=== PATIENT | female | born 1945 | race Caucasian/White ===

== ENCOUNTER 2017-02-08 12:01 | Inpatient (IN) | payer MEDICARE, OTHER, MEDICAID ==
[2017-02-08] MEDS: SOD CHLORIDE 0.9% 1,000 ML IV (12:56)
[2017-02-08 13:14] LABS: ADD MAN DIFF? NO; BASOPHILS % 0.4 % (0.0-2.0); EOSINOPHILS # 0.2 10^3/ul (0.0-0.5); EOSINOPHILS % 1.5 % (0.0-7.0); HEMATOCRIT 43.6 % (37.0-47.0); HEMOGLOBIN 14.4 g/dl (12.0-16.0); LYMPHOCYTES # 2.2 10^3/ul (0.8-2.9); LYMPHOCYTES % 19.5 % (15.0-51.0); MEAN CORPUSCULAR HEMOGLOBIN 30.1 pg (29.0-33.0); MEAN CORPUSCULAR VOLUME 91.2 fl (82.0-101.0); MEAN PLATELET VOLUME 9.9 fl (7.4-10.4); MONOCYTE # 0.5 10^3/ul (0.3-0.9); MONOCYTES % 4.5 % (0.0-11.0); NEUTROPHIL # 8.3 10^3/ul (1.6-7.5); NEUTROPHILS % 73.7 % (39.0-77.0); PLATELET COUNT 270 10^3/UL (140-415); RED BLOOD COUNT 4.78 10^6/ul (4.20-5.40)
[2017-02-08 13:14] LABS: WHITE BLOOD COUNT 11.3 10^3/ul (4.8-10.8)
[2017-02-08 13:27] LABS: INR 0.95; PROTIME 12.8 Sec (11.9-14.9)
[2017-02-08 13:29] LABS: PARTIAL THROMBOPLASTIN TIME 26.4 Sec (25.0-35.0)
[2017-02-08 13:30] LABS: ALANINE AMINOTRANSFERASE 31 IU/L (13-69); ALBUMIN/GLOBULIN RATIO 1.17; ALKALINE PHOSPHATASE 105 IU/L (42-121); ANION GAP 16 (8-16); ASPARTATE AMINO TRANSFERASE 24 IU/L (15-46); BILIRUBIN,INDIRECT 0.3 mg/dl (0-1.1); BILIRUBIN,TOTAL 0.3 mg/dl (0.2-1.3); BLOOD UREA NITROGEN 22 mg/dl (7-20); CALCIUM 9.1 mg/dl (8.4-10.2); CARBON DIOXIDE 26 mmol/L (21-31); CHLORIDE 101 mmol/L (97-110); CREATININE 1.11 mg/dl (0.44-1.00); GLUCOSE 102 mg/dl (70-220); POTASSIUM 4.7 mmol/L (3.5-5.1); SODIUM 138 mmol/L (135-144); TOTAL PROTEIN 7.4 g/dl (6.1-8.1)
[2017-02-08 13:31] LABS: ETHANOL < 10.0 mg/dl
[2017-02-08 13:45] LABS: TROPONIN-I < 0.012 ng/ml (0.00-0.12)
[2017-02-08 15:26] LABS: ADD UMIC YES; UR ASCORBIC ACID NEGATIVE (NEGATIVE); UR BILIRUBIN (Dip) NEGATIVE (NEGATIVE); UR BLOOD (Dip) 1+ mg/dL (NEGATIVE); UR CLARITY CLEAR (CLEAR); UR COLOR STRAW (YELLOW); UR GLUCOSE (Dip) NEGATIVE (NEGATIVE); UR KETONES (Dip) NEGATIVE (NEGATIVE); UR LEUKOCYTE ESTERASE (Dip) NEGATIVE Leu/ul (NEGATIVE); UR NITRITE (Dip) NEGATIVE (NEGATIVE); UR RBC 1 /HPF (0-5); UR SPECIFIC GRAVITY (Dip) 1.004 (1.003-1.030); UR TOTAL PROTEIN (Dip) NEGATIVE (NEGATIVE); UR UROBILINOGEN (Dip) NEGATIVE (NEGATIVE); UR WBC 0 /HPF (0-5)
[2017-02-08] MEDS ORDERED: NACL 0.9% 3 ML SYG IV (16:00)
[2017-02-08] MEDS ORDERED: LORAZEPAM 0.5 MG TAB PO (16:00)
[2017-02-08] MEDS ORDERED: ACETAMINOPHEN 325 MG TAB PO (16:00)
[2017-02-08] MEDS ORDERED: ONDANSETRON 4 MG INJ IV ×2 (16:00)
[2017-02-08] MEDS: DILTIAZEM 25 MG INJ IV (16:11)
[2017-02-08] MEDS: BUSPIRONE 5 MG TAB PO ×2 (17:00→22:14)
[2017-02-08 17:11] LABS: FREE T4 (FREE THYROXINE) 1.29 ng/dl (0.78-2.44)
[2017-02-08 18:27] LABS: C-REACTIVE PROTEIN 0.5 mg/dl (0.0-0.9)
[2017-02-08] MEDS: HYDROCODONE/APAP (5/325) TAB PO (18:41)
[2017-02-08 19:09] LABS: ERYTHROCYTE SEDIMENTATION RATE 20 mm/Hr (0-30)
[2017-02-08 21:08] LABS: HEMOGLOBIN A1C 5.4 % (0-5.9)
[2017-02-09 06:18] LABS: ADD MAN DIFF? NO
[2017-02-09 06:37] LABS: WHITE BLOOD COUNT 8.6 10^3/ul (4.8-10.8)
[2017-02-09 06:37] LABS: BASOPHILS % 0.5 % (0.0-2.0); EOSINOPHILS # 0.1 10^3/ul (0.0-0.5); EOSINOPHILS % 1.2 % (0.0-7.0); HEMATOCRIT 39.7 % (37.0-47.0); LYMPHOCYTES # 2.9 10^3/ul (0.8-2.9); LYMPHOCYTES % 33.3 % (15.0-51.0); MEAN CORPUSCULAR HEMOGLOBIN 30.2 pg (29.0-33.0); MEAN CORPUSCULAR HGB CONC 32.7 g/dl (32.0-37.0); MEAN CORPUSCULAR VOLUME 92.3 fl (82.0-101.0); MEAN PLATELET VOLUME 10.1 fl (7.4-10.4); MONOCYTE # 0.5 10^3/ul (0.3-0.9); MONOCYTES % 5.9 % (0.0-11.0); NEUTROPHILS % 58.6 % (39.0-77.0); PLATELET COUNT 253 10^3/UL (140-415); RED CELL DISTRIBUTION WIDTH 13.1 % (11.5-14.5)
[2017-02-09 07:02] LABS: CHOL/HDL RATIO 3.5 RATIO; CHOLESTEROL 135 mg/dl (100-200); HDL CHOLESTEROL 38 mg/dl (33-92); LDL CHOLESTEROL,CALCULATED 72 mg/dl; MAGNESIUM 1.7 mg/dl (1.7-2.5); TRIGLYCERIDES 125 mg/dl (0-149)
[2017-02-09 07:18] LABS: TROPONIN-I < 0.012 ng/ml (0.00-0.12)
[2017-02-09 07:31] LABS: ANION GAP 13 (8-16)
[2017-02-09 07:33] LABS: ALANINE AMINOTRANSFERASE 26 IU/L (13-69); ALBUMIN 3.4 g/dl (3.3-4.9); ALBUMIN/GLOBULIN RATIO 1.21; ALKALINE PHOSPHATASE 75 IU/L (42-121); ASPARTATE AMINO TRANSFERASE 23 IU/L (15-46); BILIRUBIN,INDIRECT 0.3 mg/dl (0-1.1); BILIRUBIN,TOTAL 0.3 mg/dl (0.2-1.3); BLOOD UREA NITROGEN 16 mg/dl (7-20); CALCIUM 8.8 mg/dl (8.4-10.2); CARBON DIOXIDE 28 mmol/L (21-31); CHLORIDE 104 mmol/L (97-110); CREATININE 0.91 mg/dl (0.44-1.00); GLUCOSE 94 mg/dl (70-220); SODIUM 141 mmol/L (135-144); TOTAL PROTEIN 6.2 g/dl (6.1-8.1)
[2017-02-09] MEDS: BUPROPION (XL) 150 MG TAB PO (08:49)
[2017-02-09] MEDS: LAMOTRIGINE 100 MG TAB PO (08:50)
[2017-02-09] MEDS: OLANZAPINE 5 MG TAB PO (08:50)
[2017-02-09] MEDS: FLUOXETINE 20 MG CAP PO (08:50)
[2017-02-09] MEDS: HYDROCODONE/APAP (5/325) TAB PO (08:50)
[2017-02-09] MEDS: BUSPIRONE 5 MG TAB PO ×4 (08:50→21:06)
[2017-02-09] MEDS: BACLOFEN 10 MG TAB PO (08:50)
[2017-02-09] MEDS: ENOXAPARIN 40 MG/0.4 ML SYG SC (12:51)
[2017-02-09] MEDS: VALSARTAN 80 MG TAB PO (21:06)
[2017-02-10] MEDS: HYDROCODONE/APAP (5/325) TAB PO (00:46)
[2017-02-10 06:51] LABS: ADD MAN DIFF? NO
[2017-02-10 07:58] LABS: ANION GAP 17 (8-16); BLOOD UREA NITROGEN 16 mg/dl (7-20); CALCIUM 8.8 mg/dl (8.4-10.2); CARBON DIOXIDE 22 mmol/L (21-31); CHLORIDE 105 mmol/L (97-110); CREATININE 0.84 mg/dl (0.44-1.00); GLUCOSE 97 mg/dl (70-220); POTASSIUM 4.4 mmol/L (3.5-5.1); SODIUM 140 mmol/L (135-144)
[2017-02-10 08:53] LABS: PHOSPHORUS 3.4 mg/dl (2.5-4.9)
[2017-02-10 09:11] LABS: WHITE BLOOD COUNT 8.7 10^3/ul (4.8-10.8)
[2017-02-10 09:11] LABS: BASOPHILS % 0.3 % (0.0-2.0); EOSINOPHILS # 0.1 10^3/ul (0.0-0.5); EOSINOPHILS % 1.3 % (0.0-7.0); HEMATOCRIT 42.3 % (37.0-47.0); HEMOGLOBIN 13.9 g/dl (12.0-16.0); LYMPHOCYTES # 2.2 10^3/ul (0.8-2.9); LYMPHOCYTES % 25.4 % (15.0-51.0); MEAN CORPUSCULAR HEMOGLOBIN 30.2 pg (29.0-33.0); MEAN CORPUSCULAR HGB CONC 32.9 g/dl (32.0-37.0); MEAN PLATELET VOLUME 9.6 fl (7.4-10.4); MONOCYTE # 0.5 10^3/ul (0.3-0.9); MONOCYTES % 5.8 % (0.0-11.0); NEUTROPHIL # 5.8 10^3/ul (1.6-7.5); NEUTROPHILS % 66.9 % (39.0-77.0); PLATELET COUNT 234 10^3/UL (140-415)
[2017-02-10] MEDS: BUSPIRONE 5 MG TAB PO ×4 (09:29→20:47)
[2017-02-10] MEDS: BUPROPION (XL) 150 MG TAB PO (09:29)
[2017-02-10] MEDS: BACLOFEN 10 MG TAB PO (09:30)
[2017-02-10] MEDS: OLANZAPINE 5 MG TAB PO (09:31)
[2017-02-10] MEDS: VALSARTAN 80 MG TAB PO ×2 (09:31→20:59)
[2017-02-10] MEDS: LAMOTRIGINE 100 MG TAB PO (09:31)
[2017-02-10] MEDS: FLUOXETINE 20 MG CAP PO (09:32)
[2017-02-10] MEDS: ENOXAPARIN 40 MG/0.4 ML SYG SC (09:41)
[2017-02-10 09:48] LABS: MAGNESIUM 1.7 mg/dl (1.7-2.5)
[2017-02-11] MEDS: FLUOXETINE 20 MG CAP PO (08:35)
[2017-02-11] MEDS: LAMOTRIGINE 100 MG TAB PO (08:35)
[2017-02-11] MEDS: OLANZAPINE 5 MG TAB PO (08:35)
[2017-02-11] MEDS: BACLOFEN 10 MG TAB PO (08:35)
[2017-02-11] MEDS: BUSPIRONE 5 MG TAB PO ×4 (08:36→21:16)
[2017-02-11] MEDS: VALSARTAN 80 MG TAB PO ×2 (08:37→21:15)
[2017-02-11] MEDS: BUPROPION (XL) 150 MG TAB PO (08:37)
[2017-02-11] MEDS: ENOXAPARIN 40 MG/0.4 ML SYG SC (08:44)
[2017-02-11] MEDS: ACETAMINOPHEN 325 MG TAB PO (08:46)
[2017-02-11] MEDS: HYDROCODONE/APAP (5/325) TAB PO ×2 (14:12→21:25)
[2017-02-11] MEDS: NYSTATIN 30 GM POWDER BTL TOP (18:30)
[2017-02-11] MEDS: ZOLPIDEM 5 MG TAB PO (21:25)
[2017-02-12] MEDS: BUSPIRONE 5 MG TAB PO ×4 (08:12→21:14)
[2017-02-12] MEDS: VALSARTAN 80 MG TAB PO ×2 (08:12→21:13)
[2017-02-12] MEDS: LAMOTRIGINE 100 MG TAB PO (08:12)
[2017-02-12] MEDS: BACLOFEN 10 MG TAB PO (08:13)
[2017-02-12] MEDS: OLANZAPINE 5 MG TAB PO (08:13)
[2017-02-12] MEDS: FLUOXETINE 20 MG CAP PO (08:13)
[2017-02-12] MEDS: BUPROPION (XL) 150 MG TAB PO (08:14)
[2017-02-12] MEDS: ENOXAPARIN 40 MG/0.4 ML SYG SC (08:22)
[2017-02-12] MEDS: NYSTATIN 30 GM POWDER BTL TOP ×2 (08:23→21:15)
[2017-02-12] MEDS: HYDROCODONE/APAP (5/325) TAB PO (13:25)
[2017-02-13] MEDS: NYSTATIN 30 GM POWDER BTL TOP ×2 (08:41→20:59)
[2017-02-13] MEDS: BUPROPION (XL) 150 MG TAB PO (08:43)
[2017-02-13] MEDS: FLUOXETINE 20 MG CAP PO (08:43)
[2017-02-13] MEDS: BUSPIRONE 5 MG TAB PO ×4 (08:44→20:59)
[2017-02-13] MEDS: OLANZAPINE 5 MG TAB PO (08:45)
[2017-02-13] MEDS: LAMOTRIGINE 100 MG TAB PO (08:45)
[2017-02-13] MEDS: BACLOFEN 10 MG TAB PO (08:45)
[2017-02-13] MEDS: VALSARTAN 80 MG TAB PO ×2 (08:46→20:57)
[2017-02-13] MEDS: ENOXAPARIN 40 MG/0.4 ML SYG SC (08:53)
[2017-02-13] MEDS ORDERED: METOPROLOL 5 MG INJ IV (20:00)
[2017-02-13] MEDS: DIGOXIN 500 MCG INJ IV (20:51)
[2017-02-13] MEDS: DILTIAZEM (CD) 120 MG CAP PO (20:56)
[2017-02-13] MEDS: APIXABAN 5 MG TABLET PO (20:57)
[2017-02-14] MEDS: ACETAMINOPHEN 325 MG TAB PO (03:04)
[2017-02-14 07:30] LABS: ADD MAN DIFF? NO
[2017-02-14 07:36] LABS: WHITE BLOOD COUNT 9.1 10^3/ul (4.8-10.8)
[2017-02-14 07:36] LABS: BASOPHIL # 0.1 10^3/ul (0.0-0.1); BASOPHILS % 0.5 % (0.0-2.0); EOSINOPHILS # 0.1 10^3/ul (0.0-0.5); EOSINOPHILS % 1.4 % (0.0-7.0); HEMATOCRIT 42.1 % (37.0-47.0); HEMOGLOBIN 13.9 g/dl (12.0-16.0); LYMPHOCYTES # 2.3 10^3/ul (0.8-2.9); LYMPHOCYTES % 25.1 % (15.0-51.0); MEAN CORPUSCULAR HEMOGLOBIN 30.3 pg (29.0-33.0); MEAN CORPUSCULAR VOLUME 91.7 fl (82.0-101.0); MEAN PLATELET VOLUME 9.9 fl (7.4-10.4); MONOCYTE # 0.5 10^3/ul (0.3-0.9); NEUTROPHIL # 6.2 10^3/ul (1.6-7.5); NEUTROPHILS % 67.7 % (39.0-77.0); PLATELET COUNT 242 10^3/UL (140-415); RED BLOOD COUNT 4.59 10^6/ul (4.20-5.40); RED CELL DISTRIBUTION WIDTH 12.9 % (11.5-14.5)
[2017-02-14 08:19] LABS: ANION GAP 15 (8-16); BLOOD UREA NITROGEN 15 mg/dl (7-20); CALCIUM 9.1 mg/dl (8.4-10.2); CARBON DIOXIDE 24 mmol/L (21-31); CHLORIDE 106 mmol/L (97-110); CREATININE 0.87 mg/dl (0.44-1.00); GLUCOSE 100 mg/dl (70-220); MAGNESIUM 1.7 mg/dl (1.7-2.5); PHOSPHORUS 3.6 mg/dl (2.5-4.9); POTASSIUM 4.4 mmol/L (3.5-5.1); SODIUM 141 mmol/L (135-144)
[2017-02-14 08:28] LABS: TROPONIN-I < 0.012 ng/ml (0.00-0.12)
[2017-02-14] MEDS: BUPROPION (XL) 150 MG TAB PO (08:40)
[2017-02-14] MEDS: NYSTATIN 30 GM POWDER BTL TOP (08:40)
[2017-02-14] MEDS: LAMOTRIGINE 100 MG TAB PO (08:40)
[2017-02-14] MEDS: APIXABAN 5 MG TABLET PO (08:40)
[2017-02-14] MEDS: BACLOFEN 10 MG TAB PO (08:40)
[2017-02-14] MEDS: DILTIAZEM (CD) 120 MG CAP PO (08:41)
[2017-02-14] MEDS: OLANZAPINE 5 MG TAB PO (08:41)
[2017-02-14] MEDS: VALSARTAN 80 MG TAB PO (08:41)
[2017-02-14] MEDS: BUSPIRONE 5 MG TAB PO ×3 (08:41→16:51)
[2017-02-14] MEDS: FLUOXETINE 20 MG CAP PO (08:41)
[2017-02-14] MEDS: HYDROCODONE/APAP (5/325) TAB PO (13:48)
== END 2017-02-14 18:59 | DRG 309 ==
LOC: TEL 02-09 10:10 → E/R 12:01 → MS2 15:38
PROVIDERS: Internal Medicine
DX: I48.91 Unspecified atrial fibrillation (principal); N17.9 Acute kidney failure, unspecified; Z68.42 Body mass index [BMI] 45.0-49.9, adult; R62.7 Adult failure to thrive; I10 Essential (primary) hypertension; E66.01 Morbid (severe) obesity due to excess calories; F31.9 Bipolar disorder, unspecified; R60.9 Edema, unspecified
CPT/HCPCS: 36415; 70450; 71010; 80048; 80053; 80061; 80306; 81001; 83036; 83735; 84100; 84439; 84443; 84484; 85025; 85610; 85651; 85730; 86140; 87400; 92610; 93005; 93306; 93970; 96374; 99217; 99285-25

== ENCOUNTER 2017-04-16 10:02 | Emergency (ER) | payer MEDICARE, OTHER ==
[2017-04-16] MEDS: KETOROLAC 15 MG INJ IV (22:13)
[2017-04-16] MEDS: ONDANSETRON 4 MG INJ IV (22:15)
[2017-04-16] MEDS: SOD CHLORIDE 0.9% 1,000 ML IV (22:16)
[2017-04-16 22:38] LABS: ADD MAN DIFF? NO
[2017-04-16 22:43] LABS: WHITE BLOOD COUNT 17.7 10^3/ul (4.8-10.8)
[2017-04-16 22:43] LABS: BASOPHIL # 0.1 10^3/ul (0.0-0.1); BASOPHILS % 0.3 % (0.0-2.0); EOSINOPHILS # 0.1 10^3/ul (0.0-0.5); EOSINOPHILS % 0.5 % (0.0-7.0); HEMATOCRIT 42.6 % (37.0-47.0); HEMOGLOBIN 13.9 g/dl (12.0-16.0); LYMPHOCYTES # 3.4 10^3/ul (0.8-2.9); LYMPHOCYTES % 19.3 % (15.0-51.0); MEAN CORPUSCULAR HEMOGLOBIN 30.3 pg (29.0-33.0); MEAN CORPUSCULAR HGB CONC 32.6 g/dl (32.0-37.0); MEAN CORPUSCULAR VOLUME 92.8 fl (82.0-101.0); MEAN PLATELET VOLUME 10.3 fl (7.4-10.4); MONOCYTE # 1.1 10^3/ul (0.3-0.9); MONOCYTES % 6.1 % (0.0-11.0); NEUTROPHILS % 73.3 % (39.0-77.0); PLATELET COUNT 315 10^3/UL (140-415); RED BLOOD COUNT 4.59 10^6/ul (4.20-5.40)
[2017-04-16 23:02] LABS: ALANINE AMINOTRANSFERASE 35 IU/L (13-69); ALBUMIN 3.8 g/dl (3.3-4.9); ALBUMIN/GLOBULIN RATIO 1.26; ALKALINE PHOSPHATASE 80 IU/L (42-121); ANION GAP 19 (8-16); ASPARTATE AMINO TRANSFERASE 31 IU/L (15-46); BILIRUBIN,INDIRECT 0.5 mg/dl (0-1.1); BILIRUBIN,TOTAL 0.5 mg/dl (0.2-1.3); BLOOD UREA NITROGEN 21 mg/dl (7-20); CALCIUM 9.5 mg/dl (8.4-10.2); CARBON DIOXIDE 19 mmol/L (21-31); CHLORIDE 107 mmol/L (97-110); GLUCOSE 92 mg/dl (70-220); LIPASE 92 U/L (23-300); SODIUM 141 mmol/L (135-144); TOTAL PROTEIN 6.8 g/dl (6.1-8.1)
[2017-04-16 23:05] LABS: ADD UMIC YES; UR ASCORBIC ACID 40 mg/dL (NEGATIVE); UR BACTERIA FEW /HPF (NONE SEEN); UR BILIRUBIN (Dip) NEGATIVE (NEGATIVE); UR BLOOD (Dip) 1+ mg/dL (NEGATIVE); UR CLARITY TURBID (CLEAR); UR COLOR AMBER (YELLOW); UR GLUCOSE (Dip) NEGATIVE (NEGATIVE); UR KETONES (Dip) NEGATIVE (NEGATIVE); UR LEUKOCYTE ESTERASE (Dip) 3+ Leu/ul (NEGATIVE); UR MUCUS FEW /HPF (NONE SEEN); UR NITRITE (Dip) NEGATIVE (NEGATIVE); UR RBC 38 /HPF (0-5); UR SPECIFIC GRAVITY (Dip) 1.018 (1.003-1.030); UR SQUAMOUS EPITHELIAL CELL FEW /HPF (FEW); UR TOTAL PROTEIN (Dip) 2+ mg/dl (NEGATIVE); UR TRANSITIONAL EPI CELL FEW /HPF (NONE SEEN); UR UROBILINOGEN (Dip) NEGATIVE (NEGATIVE); UR WBC > 182 /HPF (0-5)
[2017-04-16] MEDS: HYDROCODONE/APAP (5/325) TAB PO (23:47)
[2017-04-16] MEDS: CEFEPIME 1GM/50 ML (PMX) 50 ML IVPB (23:47)
[2017-04-17] MEDS: HYDROmorphONE 0.5 MG/0.5 ML SYG IM ×2 (00:59)
== END 2017-04-17 01:20 | disposition home or self-care (01) ==
LOC: E/R 04-17 01:20
DX: N12 Tubulo-interstitial nephritis, not specified as acute or chronic (principal); N28.9 Disorder of kidney and ureter, unspecified; J45.909 Unspecified asthma, uncomplicated; I10 Essential (primary) hypertension; E66.01 Morbid (severe) obesity due to excess calories; Z68.41 Body mass index [BMI] 40.0-44.9, adult; Z79.01 Long term (current) use of anticoagulants
CPT/HCPCS: 36415; 80053; 81001; 83690; 85025; 96372; 96374; 96375; 99284-25

== ENCOUNTER 2018-03-21 18:14 | Inpatient (IN) | payer MEDICARE, OTHER ==
[2018-03-21 19:51] LABS: ADD MAN DIFF? NO
[2018-03-21 19:55] LABS: BASOPHIL # 0.1 10^3/ul (0.0-0.1); BASOPHILS % 0.5 % (0.0-2.0); EOSINOPHILS # 0.2 10^3/ul (0.0-0.5); EOSINOPHILS % 2.2 % (0.0-7.0); HEMATOCRIT 43.6 % (37.0-47.0); HEMOGLOBIN 14.5 g/dl (12.0-16.0); LYMPHOCYTES # 1.5 10^3/ul (0.8-2.9); LYMPHOCYTES % 16.5 % (15.0-51.0); MEAN CORPUSCULAR HEMOGLOBIN 30.3 pg (29.0-33.0); MEAN CORPUSCULAR HGB CONC 33.3 g/dl (32.0-37.0); MEAN PLATELET VOLUME 10.3 fl (7.4-10.4); MONOCYTE # 0.5 10^3/ul (0.3-0.9); MONOCYTES % 5.8 % (0.0-11.0); NEUTROPHIL # 6.8 10^3/ul (1.6-7.5); NEUTROPHILS % 74.6 % (39.0-77.0); PLATELET COUNT 229 10^3/UL (140-415); RED BLOOD COUNT 4.79 10^6/ul (4.20-5.40); RED CELL DISTRIBUTION WIDTH 12.5 % (11.5-14.5)
[2018-03-21 19:55] LABS: WHITE BLOOD COUNT 9.2 10^3/ul (4.8-10.8)
[2018-03-21] MEDS: SOD CHLORIDE 0.9% 1,000 ML IV ×2 (19:55→23:50)
[2018-03-21 20:12] LABS: INR 1.38; PROTIME 17.1 Sec (11.9-14.9); PT RATIO 1.3
[2018-03-21 20:13] LABS: PARTIAL THROMBOPLASTIN TIME 33.7 Sec (23.0-35.0)
[2018-03-21 20:15] LABS: ALANINE AMINOTRANSFERASE 19 IU/L (13-69); ALBUMIN 3.6 g/dl (3.3-4.9); ALKALINE PHOSPHATASE 98 IU/L (42-121); AMYLASE 59 U/L (11-123); ANION GAP 10 (5-13); ASPARTATE AMINO TRANSFERASE 28 IU/L (15-46); BILIRUBIN,INDIRECT 0.5 mg/dl (0-1.1); BILIRUBIN,TOTAL 0.5 mg/dl (0.2-1.3); BLOOD UREA NITROGEN 26 mg/dl (7-20); CALCIUM 9.7 mg/dl (8.4-10.2); CARBON DIOXIDE 25 mmol/L (21-31); CHLORIDE 100 mmol/L (97-110); CREATININE 1.13 mg/dl (0.44-1.00); Estimated GFR 48 mL/min (>60); GLUCOSE 98 mg/dl (70-220); LIPASE 75 U/L (23-300); SODIUM 135 mmol/L (135-144); TOTAL PROTEIN 6.6 g/dl (6.1-8.1)
[2018-03-21 20:26] LABS: TROPONIN-I 0.016 ng/ml (0.000-0.120)
[2018-03-21 21:20] LABS: ADD UMIC YES; UR ASCORBIC ACID NEGATIVE (NEGATIVE); UR BACTERIA FEW /HPF (NONE SEEN); UR BILIRUBIN (Dip) NEGATIVE (NEGATIVE); UR BLOOD (Dip) 1+ mg/dL (NEGATIVE); UR CLARITY SLIGHTLY CLOUDY (CLEAR); UR COLOR YELLOW (YELLOW); UR GLUCOSE (Dip) NEGATIVE (NEGATIVE); UR KETONES (Dip) TRACE mg/dL (NEGATIVE); UR LEUKOCYTE ESTERASE (Dip) 3+ Leu/ul (NEGATIVE); UR NITRITE (Dip) NEGATIVE (NEGATIVE); UR RBC 5 /HPF (0-5); UR SPECIFIC GRAVITY (Dip) 1.006 (1.003-1.030); UR TOTAL PROTEIN (Dip) NEGATIVE (NEGATIVE); UR UROBILINOGEN (Dip) NEGATIVE (NEGATIVE); UR WBC 138 /HPF (0-5)
[2018-03-21] MEDS ORDERED: ONDANSETRON 4 MG INJ IV ×2 (22:00)
[2018-03-21] MEDS ORDERED: BISACODYL (EC) 5 MG TAB PO (22:00)
[2018-03-21] MEDS ORDERED: DOCUSATE SODIUM 100 MG CAP PO (22:00)
[2018-03-21] MEDS ORDERED: ACETAMINOPHEN 325 MG TAB PO ×2 (22:00)
[2018-03-21] MEDS ORDERED: NACL 0.9% 3 ML SYG IV (22:00)
[2018-03-21] MEDS: LEVOFLOXACIN 500MG/D5W (PMX) 100 ML IVPB (22:24)
[2018-03-22] MEDS: HYDROCODONE/APAP (5/325) TAB PO ×2 (01:51→20:22)
[2018-03-22 06:10] LABS: ADD MAN DIFF? NO
[2018-03-22 06:11] LABS: WHITE BLOOD COUNT 7.6 10^3/ul (4.8-10.8)
[2018-03-22 06:11] LABS: BASOPHILS % 0.5 % (0.0-2.0); EOSINOPHILS # 0.2 10^3/ul (0.0-0.5); EOSINOPHILS % 3.1 % (0.0-7.0); HEMATOCRIT 42.3 % (37.0-47.0); HEMOGLOBIN 13.7 g/dl (12.0-16.0); LYMPHOCYTES # 1.8 10^3/ul (0.8-2.9); LYMPHOCYTES % 23.1 % (15.0-51.0); MEAN CORPUSCULAR HEMOGLOBIN 30.3 pg (29.0-33.0); MEAN CORPUSCULAR HGB CONC 32.4 g/dl (32.0-37.0); MEAN CORPUSCULAR VOLUME 93.6 fl (82.0-101.0); MEAN PLATELET VOLUME 10.3 fl (7.4-10.4); MONOCYTE # 0.5 10^3/ul (0.3-0.9); MONOCYTES % 6.7 % (0.0-11.0); NEUTROPHILS % 66.1 % (39.0-77.0); PLATELET COUNT 208 10^3/UL (140-415); RED BLOOD COUNT 4.52 10^6/ul (4.20-5.40); RED CELL DISTRIBUTION WIDTH 12.5 % (11.5-14.5)
[2018-03-22 06:58] LABS: ALANINE AMINOTRANSFERASE 20 IU/L (13-69); ALBUMIN 3.4 g/dl (3.3-4.9); ALBUMIN/GLOBULIN RATIO 1.13; ALKALINE PHOSPHATASE 80 IU/L (42-121); ANION GAP 8 (5-13); ASPARTATE AMINO TRANSFERASE 23 IU/L (15-46); BILIRUBIN,INDIRECT 0.3 mg/dl (0-1.1); BILIRUBIN,TOTAL 0.3 mg/dl (0.2-1.3); BLOOD UREA NITROGEN 19 mg/dl (7-20); CALCIUM 9.1 mg/dl (8.4-10.2); CARBON DIOXIDE 25 mmol/L (21-31); CHLORIDE 106 mmol/L (97-110); CREATININE 0.86 mg/dl (0.44-1.00); Estimated GFR > 60 mL/min (>60); GLUCOSE 88 mg/dl (70-220); MAGNESIUM 1.6 mg/dl (1.7-2.5); POTASSIUM 3.5 mmol/L (3.5-5.1); SODIUM 139 mmol/L (135-144); TOTAL PROTEIN 6.4 g/dl (6.1-8.1)
[2018-03-22] MEDS ORDERED: ALBUTEROL HFA 8 GM INHALER INH (08:00)
[2018-03-22 08:06] LABS: HEMOGLOBIN A1C 4.9 % (0-5.9)
[2018-03-22] MEDS: APIXABAN 5 MG TABLET PO ×2 (08:49→20:22)
[2018-03-22] MEDS: LEVOFLOXACIN 500MG/D5W (PMX) 100 ML IVPB (08:50)
[2018-03-22] MEDS: LAMOTRIGINE 100 MG TAB PO (09:56)
[2018-03-22] MEDS: OLANZAPINE 5 MG TAB PO (09:56)
[2018-03-22] MEDS: MAGNESIUM SULFATE 2 GM/50 ML 50 ML IVPB (09:57)
[2018-03-22] MEDS: SOD CHLORIDE 0.9% 1,000 ML IV (10:57)
[2018-03-22] MEDS: FERROUS SULFATE (EC) 325 MG TAB PO ×2 (12:45→20:22)
[2018-03-22] MEDS: BUSPIRONE 10 MG TAB PO ×3 (12:52→20:21)
[2018-03-22] MEDS: DILTIAZEM 60 MG TAB PO (12:53)
[2018-03-22] MEDS ORDERED: DILTIAZEM 60 MG TAB PO (13:00)
[2018-03-22] MEDS: DILTIAZEM 30 MG TAB PO ×2 (13:10→20:21)
[2018-03-22] MEDS: DOCUSATE SODIUM 100 MG CAP PO (20:22)
[2018-03-22] MEDS ORDERED: DILTIAZEM (SR) 60 MG CAP PO (21:00)
[2018-03-23] MEDS: LEVOFLOXACIN 500MG/D5W (PMX) 100 ML IVPB (08:10)
[2018-03-23] MEDS: APIXABAN 5 MG TABLET PO ×2 (08:13→20:54)
[2018-03-23] MEDS: NIFEdipine (XL) 60 MG TAB PO (08:14)
[2018-03-23] MEDS: DOCUSATE SODIUM 100 MG CAP PO ×2 (08:15→20:54)
[2018-03-23] MEDS: BUPROPION (XL) 150 MG TAB PO (08:15)
[2018-03-23] MEDS: OLANZAPINE 5 MG TAB PO (08:15)
[2018-03-23] MEDS: DILTIAZEM 30 MG TAB PO ×3 (08:16→20:53)
[2018-03-23] MEDS: BUSPIRONE 10 MG TAB PO ×3 (08:16→16:31)
[2018-03-23] MEDS: FERROUS SULFATE (EC) 325 MG TAB PO ×3 (08:17→20:54)
[2018-03-23] MEDS: HYDROCODONE/APAP (5/325) TAB PO ×2 (08:23→16:31)
[2018-03-23] MEDS: LAMOTRIGINE 100 MG TAB PO ×2 (08:23→22:10)
[2018-03-23] MEDS ORDERED: BUPROPION (XL) 150 MG TAB PO (09:00)
[2018-03-23] MEDS: [UNRECOGNIZED DRUG - REMARK] XX (09:00)
[2018-03-23] MEDS ORDERED: LAMOTRIGINE 100 MG TAB PO (09:00)
[2018-03-23] MEDS ORDERED: hydrALAzine 20 MG INJ IV (10:00)
[2018-03-23] MEDS: LOSARTAN 50 MG TAB PO (10:00)
[2018-03-23] MEDS: BUSPIRONE 5 MG TAB PO (22:12)
[2018-03-24 06:26] LABS: ADD MAN DIFF? NO
[2018-03-24 06:31] LABS: BASOPHILS % 0.5 % (0.0-2.0); EOSINOPHILS # 0.1 10^3/ul (0.0-0.5); EOSINOPHILS % 2.2 % (0.0-7.0); HEMATOCRIT 43.1 % (37.0-47.0); HEMOGLOBIN 13.9 g/dl (12.0-16.0); LYMPHOCYTES % 30.4 % (15.0-51.0); MEAN CORPUSCULAR HGB CONC 32.3 g/dl (32.0-37.0); MEAN CORPUSCULAR VOLUME 93.1 fl (82.0-101.0); MONOCYTE # 0.4 10^3/ul (0.3-0.9); MONOCYTES % 6.7 % (0.0-11.0); NEUTROPHIL # 3.8 10^3/ul (1.6-7.5); NEUTROPHILS % 59.4 % (39.0-77.0); PLATELET COUNT 224 10^3/UL (140-415); RED BLOOD COUNT 4.63 10^6/ul (4.20-5.40); RED CELL DISTRIBUTION WIDTH 12.3 % (11.5-14.5)
[2018-03-24 06:31] LABS: WHITE BLOOD COUNT 6.4 10^3/ul (4.8-10.8)
[2018-03-24 07:04] LABS: ALBUMIN 3.5 g/dl (3.3-4.9); ANION GAP 8 (5-13); BLOOD UREA NITROGEN 11 mg/dl (7-20); CALCIUM 9.7 mg/dl (8.4-10.2); CARBON DIOXIDE 30 mmol/L (21-31); CHLORIDE 103 mmol/L (97-110); CREATININE 0.86 mg/dl (0.44-1.00); GLUCOSE 107 mg/dl (70-220); MAGNESIUM 1.8 mg/dl (1.7-2.5); PHOSPHORUS 3.7 mg/dl (2.5-4.9); POTASSIUM 4.2 mmol/L (3.5-5.1); SODIUM 141 mmol/L (135-144)
[2018-03-24] MEDS: [UNRECOGNIZED DRUG - REMARK] XX (09:00)
[2018-03-24] MEDS: BUSPIRONE 5 MG TAB PO ×4 (10:07→22:10)
[2018-03-24] MEDS: APIXABAN 5 MG TABLET PO ×2 (10:08→21:23)
[2018-03-24] MEDS: LOSARTAN 50 MG TAB PO (10:08)
[2018-03-24] MEDS: DOCUSATE SODIUM 100 MG CAP PO ×2 (10:08→21:23)
[2018-03-24] MEDS: FERROUS SULFATE (EC) 325 MG TAB PO ×3 (10:08→21:23)
[2018-03-24] MEDS: OLANZAPINE 5 MG TAB PO (10:09)
[2018-03-24] MEDS: NIFEdipine (XL) 60 MG TAB PO (10:09)
[2018-03-24] MEDS: BUPROPION (XL) 150 MG TAB PO (10:09)
[2018-03-24] MEDS: DILTIAZEM 30 MG TAB PO ×3 (10:13→21:23)
[2018-03-24] MEDS: HYDROCODONE/APAP (5/325) TAB PO ×2 (10:40→22:04)
[2018-03-24 11:00] LABS: IRON 47 ug/dl (35-150)
[2018-03-24 11:12] LABS: % IRON SATURATION 19 % SAT (22-52); TOTAL IRON BINDING CAPACITY 244 ug/dl (241-421)
[2018-03-24] MEDS: FOSFOMYCIN 3 GM PACKET PO (11:29)
[2018-03-24] MEDS: LAMOTRIGINE 100 MG TAB PO (21:41)
[2018-03-25 05:59] LABS: ADD MAN DIFF? NO
[2018-03-25 06:02] LABS: WHITE BLOOD COUNT 7.6 10^3/ul (4.8-10.8)
[2018-03-25 06:02] LABS: BASOPHILS % 0.4 % (0.0-2.0); EOSINOPHILS # 0.1 10^3/ul (0.0-0.5); EOSINOPHILS % 1.9 % (0.0-7.0); HEMATOCRIT 45.6 % (37.0-47.0); HEMOGLOBIN 14.8 g/dl (12.0-16.0); LYMPHOCYTES # 2.1 10^3/ul (0.8-2.9); LYMPHOCYTES % 28.2 % (15.0-51.0); MEAN CORPUSCULAR HEMOGLOBIN 29.6 pg (29.0-33.0); MEAN CORPUSCULAR HGB CONC 32.5 g/dl (32.0-37.0); MEAN CORPUSCULAR VOLUME 91.2 fl (82.0-101.0); MONOCYTE # 0.5 10^3/ul (0.3-0.9); MONOCYTES % 6.9 % (0.0-11.0); NEUTROPHIL # 4.7 10^3/ul (1.6-7.5); NEUTROPHILS % 62.1 % (39.0-77.0); PLATELET COUNT 254 10^3/UL (140-415); RED CELL DISTRIBUTION WIDTH 12.3 % (11.5-14.5)
[2018-03-25 06:55] LABS: ALBUMIN 3.6 g/dl (3.3-4.9); ANION GAP 9 (5-13); BLOOD UREA NITROGEN 10 mg/dl (7-20); CALCIUM 9.6 mg/dl (8.4-10.2); CARBON DIOXIDE 27 mmol/L (21-31); CHLORIDE 102 mmol/L (97-110); CREATININE 0.83 mg/dl (0.44-1.00); GLUCOSE 105 mg/dl (70-220); MAGNESIUM 1.7 mg/dl (1.7-2.5); PHOSPHORUS 3.4 mg/dl (2.5-4.9); POTASSIUM 3.8 mmol/L (3.5-5.1); SODIUM 138 mmol/L (135-144)
[2018-03-25] MEDS: APIXABAN 5 MG TABLET PO ×2 (08:42→21:18)
[2018-03-25] MEDS: DOCUSATE SODIUM 100 MG CAP PO ×2 (08:42→21:18)
[2018-03-25] MEDS: FERROUS SULFATE (EC) 325 MG TAB PO ×3 (08:42→21:18)
[2018-03-25] MEDS: LOSARTAN 50 MG TAB PO (08:42)
[2018-03-25] MEDS: OLANZAPINE 5 MG TAB PO (08:42)
[2018-03-25] MEDS: BUPROPION (XL) 150 MG TAB PO (08:43)
[2018-03-25] MEDS: DILTIAZEM 30 MG TAB PO ×3 (08:43→21:18)
[2018-03-25] MEDS: BUSPIRONE 5 MG TAB PO ×4 (08:43→21:18)
[2018-03-25] MEDS: [UNRECOGNIZED DRUG - REMARK] XX (09:00)
[2018-03-25] MEDS: HYDROCODONE/APAP (5/325) TAB PO ×2 (12:08→21:40)
[2018-03-25] MEDS: LAMOTRIGINE 100 MG TAB PO (21:37)
[2018-03-26 05:49] LABS: ADD MAN DIFF? NO
[2018-03-26 05:50] LABS: BASOPHIL # 0.1 10^3/ul (0.0-0.1); BASOPHILS % 0.6 % (0.0-2.0); EOSINOPHILS # 0.2 10^3/ul (0.0-0.5); EOSINOPHILS % 2.1 % (0.0-7.0); HEMATOCRIT 47.7 % (37.0-47.0); HEMOGLOBIN 15.6 g/dl (12.0-16.0); LYMPHOCYTES # 2.6 10^3/ul (0.8-2.9); LYMPHOCYTES % 32.1 % (15.0-51.0); MEAN CORPUSCULAR HEMOGLOBIN 29.7 pg (29.0-33.0); MEAN CORPUSCULAR HGB CONC 32.7 g/dl (32.0-37.0); MEAN CORPUSCULAR VOLUME 90.7 fl (82.0-101.0); MEAN PLATELET VOLUME 9.9 fl (7.4-10.4); MONOCYTE # 0.6 10^3/ul (0.3-0.9); MONOCYTES % 7.6 % (0.0-11.0); NEUTROPHIL # 4.6 10^3/ul (1.6-7.5); NEUTROPHILS % 57.2 % (39.0-77.0); PLATELET COUNT 260 10^3/UL (140-415); RED BLOOD COUNT 5.26 10^6/ul (4.20-5.40); RED CELL DISTRIBUTION WIDTH 12.6 % (11.5-14.5)
[2018-03-26 06:24] LABS: ALBUMIN 3.8 g/dl (3.3-4.9); ANION GAP 9 (5-13); BLOOD UREA NITROGEN 10 mg/dl (7-20); CALCIUM 9.6 mg/dl (8.4-10.2); CARBON DIOXIDE 29 mmol/L (21-31); CHLORIDE 101 mmol/L (97-110); CREATININE 0.78 mg/dl (0.44-1.00); GLUCOSE 115 mg/dl (70-220); MAGNESIUM 1.8 mg/dl (1.7-2.5); POTASSIUM 4.2 mmol/L (3.5-5.1); SODIUM 139 mmol/L (135-144)
[2018-03-26] MEDS: [UNRECOGNIZED DRUG - REMARK] XX (09:00)
[2018-03-26] MEDS: OLANZAPINE 5 MG TAB PO (09:36)
[2018-03-26] MEDS: DOCUSATE SODIUM 100 MG CAP PO (09:36)
[2018-03-26] MEDS: LOSARTAN 50 MG TAB PO (09:37)
[2018-03-26] MEDS: BUPROPION (XL) 150 MG TAB PO (09:37)
[2018-03-26] MEDS: APIXABAN 5 MG TABLET PO (09:38)
[2018-03-26] MEDS: HYDROCODONE/APAP (5/325) TAB PO (09:38)
[2018-03-26] MEDS: FERROUS SULFATE (EC) 325 MG TAB PO (09:38)
[2018-03-26] MEDS: BUSPIRONE 5 MG TAB PO (09:41)
[2018-03-26] MEDS: DILTIAZEM 30 MG TAB PO (09:41)
== END 2018-03-26 13:05 | DRG 690 ==
LOC: E/R 18:14 → PP2 21:33
DX: N39.0 Urinary tract infection, site not specified (principal); N17.9 Acute kidney failure, unspecified; Z68.41 Body mass index [BMI] 40.0-44.9, adult; B96.20 Unspecified Escherichia coli [E. coli] as the cause of diseases classified elsewhere; Z16.12 Extended spectrum beta lactamase (ESBL) resistance; I48.91 Unspecified atrial fibrillation; F31.9 Bipolar disorder, unspecified; I10 Essential (primary) hypertension; E86.0 Dehydration; R53.81 Other malaise; Z79.02 Long term (current) use of antithrombotics/antiplatelets; E66.01 Morbid (severe) obesity due to excess calories
CPT/HCPCS: 70450; 71045; 80053; 80069; 81001; 82150; 82728; 83036; 83540; 83690; 83735; 84443; 84484; 85025; 85610; 85730; 87040; 87081; 87086; 93005; 97110; 97162; 97530; 99285-25; G0378